=== PATIENT | male | born 1950 | race Caucasian/White ===

== ENCOUNTER → 2016-05-26 | Day surgery (SDC) | payer OTHER ==
[~2016-05-26] MED LIST: LISINOPRIL-HCTZ1 T14 PO
--- NOTE | ~2016-05-26 | OR ---
Unit #: [id number] #: [id number] Patient: RADHA CLAROS [id number] [address] [address] [id number] MR#: [id number] NAME: RADHA CLAROS ROOM: Date of Procedure: 05/26/2016 Admission Date: 05/26/2016 Surgeon: Barry Allen M.D. : 1950 Attending Physician: Barry Allen M.D. OPERATIVE REPORT PROCEDURE PERFORMED Colonoscopy to cecum. INDICATIONS FOR PROCEDURE A 65-year-old gentleman, average risk for colorectal cancer. MEDICATIONS Monitored anesthesia. POSTOPERATIVE FINDINGS Normal exam to cecum, mild diverticulosis. No polyps or masses. Prep was good. PLAN Repeat colonoscopy in 10 years. High-fiber diet. DESCRIPTION OF PROCEDURE The patient was explained of the procedure, risks, and benefits. Rectal exam was done, which was normal. Colonoscope was lubricated, passed up the rectum, advanced under direct vision all the way to the cecum. Cecum was identified by ileocecal valve and appendiceal orifice. At this point, I started to pull the scope out carefully looking. No polyps, masses, or colitis was seen. Mucosa was normal and healthy. I retroflexed in the rectum, small hemorrhoids seen. Scope was gently pulled out. He tolerated it well. No major complications were seen. Dictated by... Jerilyn Marinelli/ivone TD: 05/26/2016 21:47 JOB #: [id number] CC: April Alvarado M.D. Unit #: [id number] #: [id number] Patient: RADHA CLAROS OPERATIVE REPORT X Barry Allen MD X PROCEDURE OPERATIVE NOTE
== END | disposition home or self-care (01) ==
LOC: COPS 07:48
DX: Z12.11 Encounter for screening for malignant neoplasm of colon (principal); K57.30 Diverticulosis of large intestine without perforation or abscess without bleeding; E11.9 Type 2 diabetes mellitus without complications; I10 Essential (primary) hypertension; N40.0 Benign prostatic hyperplasia without lower urinary tract symptoms
CPT/HCPCS: 82947; J2250